=== PATIENT | male | born 1990 | race Caucasian/White ===

== ENCOUNTER 2023-01-31 09:14 | Emergency (ER) | payer MEDICAID, OTHER ==
[~2023-01-31] VITALS: Ht 177.8 cm; Wt 76.5 kg
[2023-01-31 10:03] VITALS: BP 140/94; PULSE 97; RESP 16; TEMP 98.4; O2SAT 96
[2023-01-31] MEDS ORDERED: CEPH500C PO (10:08)
[2023-01-31] MEDS ORDERED: NAPR-746 PO (10:08)
== END 2023-01-31 10:14 | disposition home or self-care (01) ==
LOC: ER 09:14
DX: S91.331A Puncture wound without foreign body, right foot, initial encounter (principal); Z79.899 Other long term (current) drug therapy; W22.8XXA Striking against or struck by other objects, initial encounter; Y92.59 Other trade areas as the place of occurrence of the external cause; Y93.01 Activity, walking, marching and hiking; Y99.8 Other external cause status